=== PATIENT | male | born 1995 | race Caucasian/White ===

== ENCOUNTER 2020-06-03 18:07 | Inpatient (IN) ==
[2020-06-03] MEDS ORDERED: SODIUM CHLORIDE 0.9% 1000ML 1,000 ML IV SCH (18:15)
--- NOTE | 2020-06-03 18:20 | Emergency Department Note ---
Impression & Plan Altered mental status, Benzodiazepine overdose ED Provider Note NAME: SOBIA TRUONG AGE: 24 SEX: M : 1995 ARRIVES VIA: Ambulance INFORMANT: Patient, prehospital personnel ED PROVIDER(S): Yandel Payne DO CHIEF COMPLAINT: Altered mental status HPI: The patient is a 24-year-old male who presented to the emergency department by ambulance for an evaluation of altered mental status. The patient's significant other called 911 and the patient was evaluated at his home for altered mental status. The patient admitted to some marijuana use earlier in the day but states no recent drug or alcohol use. He states he has a history of serotonin syndrome but the symptoms were significantly different. He has no history of falls. There was no history of fever. He has no headache or neck stiffness. He denies having any nausea or vomiting. He states that he has had no recent traveling. According to the prehospital personnel the patient was confused to location but he was oriented to person place and situation otherw ise. The patient offers very little history. The patient is slow to answer questions. Vital signs were stable prior to arrival according to the prehospital personnel. Further history is obtained from the patient's girlfriend. Apparently they are both from the [facility]. The patient was picked up by his girlfriend to come to college this afternoon. She picked him up around 1 PM. She states that he was in his normal state of health but once they got to [place] at around 5:00 he started to have a decrease in his mental status and that when she became worried about his condition and called 911. ROS: See above HPI for pertinent positives & negatives. A total of 10 systems reviewed and were otherwise negative. PAST MEDICAL HISTORY: See Below PAST SURGICAL HISTORY: See Below FAMILY HISTORY: See Below SOCIAL HISTORY: See Below HOME MEDICATIONS: See Below ALLERGIES: See Below VITALS: See Below PHYSICAL EXAMINATION: GENERAL: The patient is listless and slow to respond to questioning. He does not appear to be anxious or uncomfortable. EYES: The conjunctivae are clear. The pupils are round and reactive. EARS, NOSE, MOUTH AND THROAT: The nose is without any evidence of any deformity. NECK: The neck is nontender and supple. RESPIRATORY: Normal respiratory effort is noted there is no evidence of wheezing rhonchi or rales CARDIOVASCULAR: Regular rate and rhythm noted there no murmurs rubs or gallops normal S1 normal S2. GASTROINTESTINAL: The abdomen is soft. Abdomen is nontender. MUSCULOSKELETAL/EXTREMITIES: There is no evidence of gross deformity full range of motion is noted in the hips and shoulders. SKIN: There is no obvious evidence of any rash. There are no petechiae, pallor or cyanosis noted. NEUROLOGIC: Patient is awake to verbal commands. He is oriented to person. He knows his name as well as the date. Initially he thought he was at a different emergency department but now knows he is at [facility]. Strength was symmetric. Patellar tendon reflexes were 1+ bilaterally. PSYCH: The patient makes poor eye contact. Currently he is denying any drug or alcohol abuse. He is denying any suicidal homicidal ideation. MEDICAL DECISION MAKING: The patient is a 24-year-old male who presented to the emergency department for altered mental status. There was no reported overdose and the patient denied any drug or alcohol use other than marijuana. The patient was evaluated multiple times. The patient's mental status continued to diminish while he was in the emergency department. He was awake and alert to verbal commands initially but is sleeping at this time. He does still arouse to loud verbal commands. The patient's mother came to the emergency department to be with him. She does help with some of the history and states that the patient has had problems with anxiety in the past and is self medicated with Xanax. I discussed the patient's laboratory and radiographic studies with him and his mother. Given his ongoing symptoms I will discuss his case with the on-call [facility] hospitalist group. The patient was treated with IV fluids in the emergency department. Vital signs were reassuring. Triage Nursing notes reviewed. Prior medical records reviewed Vital Signs: reviewed and remarkable for episodes of hypotension. Differential diagnosis: Infection, hypoglycemia, electrolyte abnormalities, overdose, toxicologic, cardiac sources, intracerebral event, neurologic, trauma, as well as other pathologies. ER treatment provided: See below Diagnostics interpreted by me: ECG: EKG was obtained in the emergency department. My interpretation is sinus tachycardia 105 bpm. There was no ectopy. There was no acute ST segment abnormalities noted. No previous tracing was available. Cardiac Monitoring: An order was placed for continuous cardiac monitoring. The monitor shows a rate of 85 bpm with sinus rhythm. Laboratory studies: As stated above and show below. Imaging studies: See below Consultation(s): 2030: I discussed this case with Dr. Alegria who is on-call for the [facility] hospitalist group. Past Med/Surg History Medical History Serotonin syndrome Social History Smoking Status: Current some day smoker Hx Substance Use: Yes Prescribed Medications: Marijuana Non-Prescribed Medications: Crack / Cocaine Preferred Language: Welsh Allergies Allergies Allergy/AdvReac Type Severity Reaction Status Date / Time No Known Allergies Allergy Unverified 06/03/20 19:12 Home Meds Home Medications Medication Instructions Recorded Confirmed levetiracetam [Keppra] 1,000 mg PO BID 06/03/20 06/03/20 Results & Data (ED) Vital Signs Vital Signs - 24 hr 06/03/20 18:21 06/03/20 18:24 06/03/20 18:30 Temperature 36.4 C L Temperature Source Oral Pulse Rate 89 81 Respiratory Rate 22 21 Blood Pressure 118/71 109/57 L Blood Pressure Mean 86 80 Pulse Oximetry 99 98 96 Oxygen Delivery Method Room Air Room Air Sepsis Recent Fever Within 48 Hours No Sepsis New/Unexplained Change in Mental Status Yes Sepsis Action Taken by Nursing No Action Required Home Medications Current Medication List: was personally reviewed by me Laboratory Data Attestation: I reviewed the patient's lab results. Result diagrams: 06/03/20 18:17 06/03/20 18:17 Lab Results 06/03/20 06/03/20 06/03/20 Range/Units 18:17 18:17 18:17 WBC 7.83 (4.8-10.8) K/uL RBC 5.12 (4.7-6.1) M/uL Hgb 14.6 (14.0-18.0) g/dL POC Hgb (14.0-18.0) g/dl Hct 41.1 L (42-52) % POC Hct (42-52) % MCV 80.3 (80-100) fL MCH 28.5 (25-34) pg MCHC 35.5 (32-36) g/dL RDW Std Deviation 36.8 (36.4-46.3) fL RDW Coeff of Ania 12.4 (11.5-14.5) % Plt Count 248 (130-400) K/uL MPV 10.2 (7.4-10.4) fL Immature Gran % (Auto) 0.1 % Neut % (Auto) 62.3 % Lymph % (Auto) 27.6 % Sibley % (Auto) 8.6 % Eos % (Auto) 1.1 % Baso % (Auto) 0.3 % Neut # (Auto) 4.88 (1.4-6.5) K/uL Lymph # (Auto) 2.16 (1.2-3.4) K/uL Sibley # (Auto) 0.67 H (0.11-0.59) K/uL Eos # (Auto) 0.09 (0-0.5) K/uL Baso # (Auto) 0.02 (0-0.2) K/uL Immature Gran # (Auto) 0.01 (0.00-0.02) K/uL ESR (0-14) mm/hr PT 11.4 (9.0-12.0) Seconds INR 1.1 (0.9-1.1) APTT 32.9 H (21.0-31.0) Seconds PTT Ratio 1.2 Carboxyhemoglobin % THgb POC Sodium (135-144) mmol/L Sodium 141 (136-145) mmol/L POC Potassium (3.3-5.0) mmol/L Potassium 3.6 (3.5-5.1) mmol/L POC Chloride (101-112) mmol/L Chloride 106 (98-107) mmol/L Carbon Dioxide 28 (21-32) mmol/L POC Total CO2 (24-31) mmol/L Anion Gap 7.0 (3-11) POC Anion Gap (16-25) mmol/L POC BUN (7-18) mg/dl BUN 12 (7-18) mg/dl Creatinine 0.99 (0.6-1.4) mg/dl POC Creatinine (0.6-1.3) mg/dl Est Cr Clr Drug Dosing Not Reportable Est GFR ( Amer) 124.8 Est GFR (Non-Af Amer) 107.7 BUN/Creatinine Ratio 11.9 (10-20) Glucose 78 (70-99) mg/dl POC Glucose (other) (70-99) mg/dl Osmolality (280-300) mOsm/kg Calcium 9.2 (8.5-10.1) mg/dl POC Ioniz Calcium Deyanira (1.12-1.32) mmol/l Magnesium 2.2 (1.8-2.4) mg/dl Total Bilirubin 0.4 (0.2-1) mg/dl AST 11 L (15-37) U/L ALT 32 (12-78) U/L Alkaline Phosphatase 112 (45-117) U/L Total Creatine Kinase 45 (39-308) U/L Troponin I < 0.015 (0-0.045) ng/ml C-Reactive Protein 0.83 H (0-0.29) mg/dl Total Protein 7.9 (6.4-8.2) gm/dl Albumin 4.2 (3.4-5.0) gm/dl Globulin 3.7 (2.5-4.0) gm/dl Albumin/Globulin Ratio 1.1 (0.9-2) Lipase 117 (73-393) U/L Urine Color Urine Appearance (Clear) Urine pH (4.5-7.5) Ur Specific [place] (1.000-1.030) Urine Protein (Negative) Urine Glucose (UA) (Negative) Urine Ketones (Negative) Urine Blood (Negative) Urine Nitrite (Negative) Urine Bilirubin (Negative) Urine Urobilinogen (Negative) Ur Leukocyte Esterase (Negative) Salicylates (2.8-20) mg/dl Urine Opiates Screen (Neg) Ur Methadone, Qual (Neg) Acetaminophen (10-30) ug/ml Urine Barbiturates (Neg) Ur Phencyclidine (PCP) (Neg) U Amphetamin/Meth Scrn (Neg) MDMA (Ecstasy) Screen (Neg) U Benzodiazepines Scrn (Neg) Ur Cocaine Metabolite (Neg) U Marijuana (THC) Screen (Neg) Ethyl Alcohol mg/dL (0-3) mg/dl COVID-19 Eval Order SARS-CoV-2, RNA, NAAT (NEGATIVE) 06/03/20 06/03/20 06/03/20 Range/Units 18:17 18:17 18:17 WBC (4.8-10.8) K/uL RBC (4.7-6.1) M/uL Hgb (14.0-18.0) g/dL POC Hgb (14.0-18.0) g/dl Hct (42-52) % POC Hct (42-52) % MCV (80-100) fL MCH (25-34) pg MCHC (32-36) g/dL RDW Std Deviation (36.4-46.3) fL RDW Coeff of Ania (11.5-14.5) % Plt Count (130-400) K/uL MPV (7.4-10.4) fL Immature Gran % (Auto) % Neut % (Auto) % Lymph % (Auto) % Sibley % (Auto) % Eos % (Auto) % Baso % (Auto) % Neut # (Auto) (1.4-6.5) K/uL Lymph # (Auto) (1.2-3.4) K/uL Sibley # (Auto) (0.11-0.59) K/uL Eos # (Auto) (0-0.5) K/uL Baso # (Auto) (0-0.2) K/uL Immature Gran # (Auto) (0.00-0.02) K/uL ESR (0-14) mm/hr PT (9.0-12.0) Seconds INR (0.9-1.1) APTT (21.0-31.0) Seconds PTT Ratio Carboxyhemoglobin % THgb POC Sodium (135-144) mmol/L Sodium (136-145) mmol/L POC Potassium (3.3-5.0) mmol/L Potassium (3.5-5.1) mmol/L POC Chloride (101-112) mmol/L Chloride (98-107) mmol/L Carbon Dioxide (21-32) mmol/L POC Total CO2 (24-31) mmol/L Anion Gap (3-11) POC Anion Gap (16-25) mmol/L POC BUN (7-18) mg/dl BUN (7-18) mg/dl Creatinine (0.6-1.4) mg/dl POC Creatinine (0.6-1.3) mg/dl Est Cr Clr Drug Dosing Est GFR ( Amer) Est GFR (Non-Af Amer) BUN/Creatinine Ratio (10-20) Glucose (70-99) mg/dl POC Glucose (other) (70-99) mg/dl Osmolality 289 (280-300) mOsm/kg Calcium (8.5-10.1) mg/dl POC Ioniz Calcium Deyanira (1.12-1.32) mmol/l Magnesium (1.8-2.4) mg/dl Total Bilirubin (0.2-1) mg/dl AST (15-37) U/L ALT (12-78) U/L Alkaline Phosphatase (45-117) U/L Total Creatine Kinase (39-308) U/L Troponin I (0-0.045) ng/ml C-Reactive Protein (0-0.29) mg/dl Total Protein (6.4-8.2) gm/dl Albumin (3.4-5.0) gm/dl Globulin (2.5-4.0) gm/dl Albumin/Globulin Ratio (0.9-2) Lipase (73-393) U/L Urine Color Urine Appearance (Clear) Urine pH (4.5-7.5) Ur Specific [place] (1.000-1.030) Urine Protein (Negative) Urine Glucose (UA) (Negative) Urine Ketones (Negative) Urine Blood (Negative) Urine Nitrite (Negative) Urine Bilirubin (Negative) Urine Urobilinogen (Negative) Ur Leukocyte Esterase (Negative) Salicylates < 1.7 L (2.8-20) mg/dl Urine Opiates Screen (Neg) Ur Methadone, Qual (Neg) Acetaminophen < 2 L (10-30) ug/ml Urine Barbiturates (Neg) Ur Phencyclidine (PCP) (Neg) U Amphetamin/Meth Scrn (Neg) MDMA (Ecstasy) Screen (Neg) U Benzodiazepines Scrn (Neg) Ur Cocaine Metabolite (Neg) U Marijuana (THC) Screen (Neg) Ethyl Alcohol mg/dL (0-3) mg/dl COVID-19 Eval Order Covid19 IDNow [facility] SARS-CoV-2, RNA, NAAT (NEGATIVE) 06/03/20 06/03/20 06/03/20 Range/Units 18:17 18:17 18:17 WBC (4.8-10.8) K/uL RBC (4.7-6.1) M/uL Hgb (14.0-18.0) g/dL POC Hgb (14.0-18.0) g/dl Hct (42-52) % POC Hct (42-52) % MCV (80-100) fL MCH (25-34) pg MCHC (32-36) g/dL RDW Std Deviation (36.4-46.3) fL RDW Coeff of Ania (11.5-14.5) % Plt Count (130-400) K/uL MPV (7.4-10.4) fL Immature Gran % (Auto) % Neut % (Auto) % Lymph % (Auto) % Sibley % (Auto) % Eos % (Auto) % Baso % (Auto) % Neut # (Auto) (1.4-6.5) K/uL Lymph # (Auto) (1.2-3.4) K/uL Sibley # (Auto) (0.11-0.59) K/uL Eos # (Auto) (0-0.5) K/uL Baso # (Auto) (0-0.2) K/uL Immature Gran # (Auto) (0.00-0.02) K/uL ESR 4 (0-14) mm/hr PT (9.0-12.0) Seconds INR (0.9-1.1) APTT (21.0-31.0) Seconds PTT Ratio Carboxyhemoglobin % THgb POC Sodium (135-144) mmol/L Sodium (136-145) mmol/L POC Potassium (3.3-5.0) mmol/L Potassium (3.5-5.1) mmol/L POC Chloride (101-112) mmol/L Chloride (98-107) mmol/L Carbon Dioxide (21-32) mmol/L POC Total CO2 (24-31) mmol/L Anion Gap (3-11) POC Anion Gap (16-25) mmol/L POC BUN (7-18) mg/dl BUN (7-18) mg/dl Creatinine (0.6-1.4) mg/dl POC Creatinine (0.6-1.3) mg/dl Est Cr Clr Drug Dosing Est GFR ( Amer) Est GFR (Non-Af Amer) BUN/Creatinine Ratio (10-20) Glucose (70-99) mg/dl POC Glucose (other) (70-99) mg/dl Osmolality (280-300) mOsm/kg Calcium (8.5-10.1) mg/dl POC Ioniz Calcium Deyanira (1.12-1.32) mmol/l Magnesium (1.8-2.4) mg/dl Total Bilirubin (0.2-1) mg/dl AST (15-37) U/L ALT (12-78) U/L Alkaline Phosphatase (45-117) U/L Total Creatine Kinase (39-308) U/L Troponin I (0-0.045) ng/ml C-Reactive Protein Cancelled (0-0.29) mg/dl Total Protein (6.4-8.2) gm/dl Albumin (3.4-5.0) gm/dl Globulin (2.5-4.0) gm/dl Albumin/Globulin Ratio (0.9-2) Lipase (73-393) U/L Urine Color Urine Appearance (Clear) Urine pH (4.5-7.5) Ur Specific [place] (1.000-1.030) Urine Protein (Negative) Urine Glucose (UA) (Negative) Urine Ketones (Negative) Urine Blood (Negative) Urine Nitrite (Negative) Urine Bilirubin (Negative) Urine Urobilinogen (Negative) Ur Leukocyte Esterase (Negative) Salicylates (2.8-20) mg/dl Urine Opiates Screen (Neg) Ur Methadone, Qual (Neg) Acetaminophen (10-30) ug/ml Urine Barbiturates (Neg) Ur Phencyclidine (PCP) (Neg) U Amphetamin/Meth Scrn (Neg) MDMA (Ecstasy) Screen (Neg) U Benzodiazepines Scrn (Neg) Ur Cocaine Metabolite (Neg) U Marijuana (THC) Screen (Neg) Ethyl Alcohol mg/dL (0-3) mg/dl COVID-19 Eval Order SARS-CoV-2, RNA, NAAT NEGATIVE (NEGATIVE) 06/03/20 06/03/20 06/03/20 Range/Units 18:23 18:28 18:28 WBC (4.8-10.8) K/uL RBC (4.7-6.1) M/uL Hgb (14.0-18.0) g/dL POC Hgb 14.3 (14.0-18.0) g/dl Hct (42-52) % POC Hct 42 (42-52) % MCV (80-100) fL MCH (25-34) pg MCHC (32-36) g/dL RDW Std Deviation (36.4-46.3) fL RDW Coeff of Ania (11.5-14.5) % Plt Count (130-400) K/uL MPV (7.4-10.4) fL Immature Gran % (Auto) % Neut % (Auto) % Lymph % (Auto) % Sibley % (Auto) % Eos % (Auto) % Baso % (Auto) % Neut # (Auto) (1.4-6.5) K/uL Lymph # (Auto) (1.2-3.4) K/uL Sibley # (Auto) (0.11-0.59) K/uL Eos # (Auto) (0-0.5) K/uL Baso # (Auto) (0-0.2) K/uL Immature Gran # (Auto) (0.00-0.02) K/uL ESR (0-14) mm/hr PT (9.0-12.0) Seconds INR (0.9-1.1) APTT (21.0-31.0) Seconds PTT Ratio Carboxyhemoglobin 0.0 % THgb POC Sodium 140 (135-144) mmol/L Sodium (136-145) mmol/L POC Potassium 3.7 (3.3-5.0) mmol/L Potassium (3.5-5.1) mmol/L POC Chloride 104 (101-112) mmol/L Chloride (98-107) mmol/L Carbon Dioxide (21-32) mmol/L POC Total CO2 27 (24-31) mmol/L Anion Gap (3-11) POC Anion Gap 14.0 L (16-25) mmol/L POC BUN 13 (7-18) mg/dl BUN (7-18) mg/dl Creatinine (0.6-1.4) mg/dl POC Creatinine 0.9 (0.6-1.3) mg/dl Est Cr Clr Drug Dosing Est GFR ( Amer) Est GFR (Non-Af Amer) BUN/Creatinine Ratio (10-20) Glucose (70-99) mg/dl POC Glucose (other) 81 (70-99) mg/dl Osmolality (280-300) mOsm/kg Calcium (8.5-10.1) mg/dl POC Ioniz Calcium Deyanira 1.15 (1.12-1.32) mmol/l Magnesium (1.8-2.4) mg/dl Total Bilirubin (0.2-1) mg/dl AST (15-37) U/L ALT (12-78) U/L Alkaline Phosphatase (45-117) U/L Total Creatine Kinase (39-308) U/L Troponin I (0-0.045) ng/ml C-Reactive Protein (0-0.29) mg/dl Total Protein (6.4-8.2) gm/dl Albumin (3.4-5.0) gm/dl Globulin (2.5-4.0) gm/dl Albumin/Globulin Ratio (0.9-2) Lipase (73-393) U/L Urine Color Urine Appearance (Clear) Urine pH (4.5-7.5) Ur Specific [place] (1.000-1.030) Urine Protein (Negative) Urine Glucose (UA) (Negative) Urine Ketones (Negative) Urine Blood (Negative) Urine Nitrite (Negative) Urine Bilirubin (Negative) Urine Urobilinogen (Negative) Ur Leukocyte Esterase (Negative) Salicylates (2.8-20) mg/dl Urine Opiates Screen (Neg) Ur Methadone, Qual (Neg) Acetaminophen (10-30) ug/ml Urine Barbiturates (Neg) Ur Phencyclidine (PCP) (Neg) U Amphetamin/Meth Scrn (Neg) MDMA (Ecstasy) Screen (Neg) U Benzodiazepines Scrn (Neg) Ur Cocaine Metabolite (Neg) U Marijuana (THC) Screen (Neg) Ethyl Alcohol mg/dL < 3.0 (0-3) mg/dl COVID-19 Eval Order SARS-CoV-2, RNA, NAAT (NEGATIVE) 06/03/20 06/03/20 Range/Units 19:20 19:20 WBC (4.8-10.8) K/uL RBC (4.7-6.1) M/uL Hgb (14.0-18.0) g/dL POC Hgb (14.0-18.0) g/dl Hct (42-52) % POC Hct (42-52) % MCV (80-100) fL MCH (25-34) pg MCHC (32-36) g/dL RDW Std Deviation (36.4-46.3) fL RDW Coeff of Ania (11.5-14.5) % Plt Count (130-400) K/uL MPV (7.4-10.4) fL Immature Gran % (Auto) % Neut % (Auto) % Lymph % (Auto) % [place] % (Auto) % Eos % (Auto) % Baso % (Auto) % Neut # (Auto) (1.4-6.5) K/uL Lymph # (Auto) (1.2-3.4) K/uL S[place]y # (Auto) (0.11-0.59) K/uL Eos # (Auto) (0-0.5) K/uL Baso # (Auto) (0-0.2) K/uL Immature Gran # (Auto) (0.00-0.02) K/uL ESR (0-14) mm/hr PT (9.0-12.0) Seconds INR (0.9-1.1) APTT (21.0-31.0) Seconds PTT Ratio Carboxyhemoglobin % THgb POC Sodium (135-144) mmol/L Sodium (136-145) mmol/L POC Potassium (3.3-5.0) mmol/L Potassium (3.5-5.1) mmol/L POC Chloride (101-112) mmol/L Chloride (98-107) mmol/L Carbon Dioxide (21-32) mmol/L POC Total CO2 (24-31) mmol/L Anion Gap (3-11) POC Anion Gap (16-25) mmol/L POC BUN (7-18) mg/dl BUN (7-18) mg/dl Creatinine (0.6-1.4) mg/dl POC Creatinine (0.6-1.3) mg/dl Est Cr Clr Drug Dosing Est GFR ( Amer) Est GFR (Non-Af Amer) BUN/Creatinine Ratio (10-20) Glucose (70-99) mg/dl POC Glucose (other) (70-99) mg/dl Osmolality (280-300) mOsm/kg Calcium (8.5-10.1) mg/dl POC Ioniz Calcium Deyanira (1.12-1.32) mmol/l Magnesium (1.8-2.4) mg/dl Total Bilirubin (0.2-1) mg/dl AST (15-37) U/L ALT (12-78) U/L Alkaline Phosphatase (45-117) U/L Total Creatine Kinase (39-308) U/L Troponin I (0-0.045) ng/ml C-Reactive Protein (0-0.29) mg/dl Total Protein (6.4-8.2) gm/dl Albumin (3.4-5.0) gm/dl Globulin (2.5-4.0) gm/dl Albumin/Globulin Ratio (0.9-2) Lipase (73-393) U/L Urine Color Yellow Urine Appearance Clear (Clear) Urine pH 7.0 (4.5-7.5) Ur Specific [place] 1.023 (1.000-1.030) Urine Protein Negative (Negative) Urine Glucose (UA) Negative (Negative) Urine Ketones Negative (Negative) Urine Blood Negative (Negative) Urine Nitrite Negative (Negative) Urine Bilirubin Negative (Negative) Urine Urobilinogen Negative (Negative) Ur Leukocyte Esterase Negative (Negative) Salicylates (2.8-20) mg/dl Urine Opiates Screen Neg (Neg) Ur Methadone, Qual Neg (Neg) Acetaminophen (10-30) ug/ml Urine Barbiturates Neg (Neg) Ur Phencyclidine (PCP) Neg (Neg) U Amphetamin/Meth Scrn Neg (Neg) MDMA (Ecstasy) Screen Neg (Neg) U Benzodiazepines Scrn Pos H (Neg) Ur Cocaine Metabolite Neg (Neg) U Marijuana (THC) Screen Pos H (Neg) Ethyl Alcohol mg/dL (0-3) mg/dl COVID-19 Eval Order SARS-CoV-2, RNA, NAAT (NEGATIVE) Administered Medications Discontinued Medications Sodium Chloride (Nss 1000ml) 1,000 mls @ 999 mls/hr IV .[id number] Stop: 06/03/20 19:15 Last Infusion: 06/03/20 20:01 Dose: 0 mls/hr Documented by: [id number] Admin: 06/03/20 18:51 Dose: 999 mls/hr Documented by: [id number] Imaging Data Radiologist's Impression: Patient: SOBIA TRUONG Admit Date: 06/03/20 MR#: [id number] Address1: [facility] [place] Acct ID:[id number] Address2: Date: 1995 [facility] Zip: [place] [address] Age: 24 Location: ED Sex: M Room/Bed: Att Phy: Diagnosis: WEAKNESS, SLURRED SPEECH Bety Phy: PCP,NO Service Date: 06/03/20 Tonio Phy: Interpreting Phy: Kristofer Bowles MD Admit Phy: Ordering Phy: Yandel Payne DO cc: ~ HEAD CT NONCONTRAST CT DOSE: 767.83 mGy.cm HISTORY: Altered mental status. TECHNIQUE: Multiaxial CT images of the head were performed without the use of intravenous contrast. Automated exposure control was utilized for this study. A dose lowering technique was utilized adhering to the principles of ALARA. Comparison: None. Findings: The paranasal sinuses and mastoid air cells are clear. The calvarium and skull base are intact. The ventricles and sulci are within normal limits. There is no mass, hematoma, midline shift, or acute infarct. Impression: No acute intracranial abnormality. ACT 112: Negative or not required by law. Electronically signed by: Kristofer Bowles M.D. 06/03/2020 6:49 PM Dictated: 06/03/201844 Transcribed: 06/03/201844 Patient: SOBIA TRUONG Admit Date: 06/03/20 MR#: [id number] Address1: [facility] [place] Acct ID:[id number] Address2: Date: 1995 [facility] Zip: [place] [address] Age: 24 Location: ED Sex: M Room/Bed: Att Phy: Diagnosis: WEAKNESS, SLURRED SPEECH Bety Phy: PCP,NO Service Date: 06/03/20 Tonio Phy: Interpreting Phy: Kristofer Bowles MD Admit Phy: Ordering Phy: Yandel Payne DO cc: ~ XR chest 1V portable HISTORY: Altered mental status. COMPARISON: None. FINDINGS: The lungs are clear. Cardiac silhouette is normal in size. No pleural effusions. No pneumothorax. IMPRESSION: No acute process. ACT 112: Negative or not required by law. Electronically signed by: Kristofer Bowles M.D. 06/03/2020 7:13 PM Dictated: 06/03/201910 Transcribed: 06/03/201910 Prescription Drug Monitoring [place] Drug Monitoring Program reviewed and no issues identified Discharge Plan Visit Data Chief Complaint: Altered Mental Status ED Provider: Yandel Payne Discharge Problem: Altered mental status, Benzodiazepine overdose Patient Disposition: Being Evaluated by Hospitalist Condition: Good Forms Stand Alone Forms: [facility] Prescriptions Prescriptions: No Action levetiracetam [Keppra] 1,000 mg Tablet 1,000 mg PO BID RF: 0 Referrals Referrals: JABARI GURROLA [Other] Discharge Problem: Altered mental status Qualifiers: Altered mental status type: unspecified Qualified Code(s): R41.82 - Altered mental status, unspecified Benzodiazepine overdose Qualifiers: Encounter type: initial encounter Injury intent: undetermined intent Qualified Code(s): T42.4X4A - Poisoning by benzodiazepines, undetermined, initial encounter
[2020-06-03 18:31] LABS: Basophils # (auto) 0.02 K/uL (0-0.2); Basophils % (auto) 0.3 %; Eosinophils # (auto) 0.09 K/uL (0-0.5); Eosinophils % (auto) 1.1 %; Hematocrit (blood only) 41.1 % (42-52); Hemoglobin 14.6 g/dL (14.0-18.0); Immature Granulocytes # (auto) 0.01 K/uL (0.00-0.02); Immature Granulocytes % (auto) 0.1 %; Lymphocytes # (auto) 2.16 K/uL (1.2-3.4); Lymphocytes % (auto) 27.6 %; Mean Corpuscular Hemoglobin 28.5 pg (25-34); Mean Corpuscular Hgb Conc 35.5 g/dL (32-36); Mean Corpuscular Volume 80.3 fL (80-100); Mean Platelet Volume 10.2 fL (7.4-10.4); Monocytes # (auto) 0.67 K/uL (0.11-0.59); Monocytes % (auto) 8.6 %; Neutrophils # (auto) 4.88 K/uL (1.4-6.5); Neutrophils % (auto) 62.3 %; Platelet Count 248 K/uL (130-400); RDW Coefficient of Variation 12.4 % (11.5-14.5); RDW Standard Deviation 36.8 fL (36.4-46.3); Red Blood Count 5.12 M/uL (4.7-6.1); White Blood Count 7.83 K/uL (4.8-10.8)
[2020-06-03 18:34] LABS: iSTAT Creatinine 0.9 mg/dl (0.6-1.3); iSTAT Hemoglobin 14.3 g/dl (14.0-18.0); iSTAT Ionized Calcium 1.15 mmol/l (1.12-1.32); iSTAT Potassium 3.7 mmol/L (3.3-5.0)
[2020-06-03 18:42] LABS: INR 1.1 (0.9-1.1); Partial Thromboplastin Ratio 1.2; Partial Thromboplastin Time 32.9 Seconds (21.0-31.0); Prothrombin Time 11.4 Seconds (9.0-12.0)
[2020-06-03 18:46] LABS: Alanine Aminotransferase 32 U/L (12-78); Albumin Level 4.2 gm/dl (3.4-5.0); Aspartate Aminotransferase 11 U/L (15-37); BUN Creatinine Ratio 11.9 (10-20); Blood Urea Nitrogen 12 mg/dl (7-18); Calcium 9.2 mg/dl (8.5-10.1); Carbon Dioxide 28 mmol/L (21-32); Chloride 106 mmol/L (98-107); Est GFR (African American) 124.8; Est GFR (Non-African American) 107.7; Glucose 78 mg/dl (70-99); Lipase 117 U/L (73-393); Magnesium 2.2 mg/dl (1.8-2.4); Potassium 3.6 mmol/L (3.5-5.1); Sodium 141 mmol/L (136-145)
[2020-06-03 18:51] LABS: Albumin Globulin Ratio 1.1 (0.9-2); Alkaline Phosphatase 112 U/L (45-117); Bilirubin,Total 0.4 mg/dl (0.2-1); Creatine Kinase 45 U/L (39-308); Globulin 3.7 gm/dl (2.5-4.0); Total Protein 7.9 gm/dl (6.4-8.2); Troponin I < 0.015 ng/ml (0-0.045)
--- NOTE | 2020-06-03 18:51 | CT Scan Report ---
HEAD CT NONCONTRAST CT DOSE: 767.83 mGy.cm HISTORY: Altered mental status. TECHNIQUE: Multiaxial CT images of the head were performed without the use of intravenous contrast. A utomated exposure control was utilized for this study. A dose lowering technique was utilized adheri ng to the principles of ALARA. Comparison: None. Findings: The paranasal sinuses and mastoid air cells are clear. The calvarium and skull base are int act. The ventricles and sulci are within normal limits. There is no mass, hematoma, midline shift, or acute infarct. Impression: No acute intracranial abnormality. ACT 112: Negative or not required by law. Electronically signed by: Kristofer Bowles M.D. 06/03/2020 6:49 PM
[2020-06-03 18:53] LABS: Acetaminophen < 2 ug/ml (10-30); Salicylate < 1.7 mg/dl (2.8-20)
[2020-06-03 19:01] LABS: C Reactive Protein 0.83 mg/dl (0-0.29)
--- NOTE | 2020-06-03 19:15 | XRay Report ---
XR chest 1V portable HISTORY: Altered mental status. COMPARISON: None. FINDINGS: The lungs are clear. Cardiac silhouette is normal in size. No pleural effusions. No pneumot horax. IMPRESSION: No acute process. ACT 112: Negative or not required by law. Electronically signed by: Kristofer Bowles M.D. 06/03/2020 7:13 PM
[2020-06-03 19:33] LABS: Appearance Urine Clear (Clear); Bilirubin Urine Negative (Negative); Blood Urine Negative (Negative); Color Urine Yellow; Glucose Urine UA Negative (Negative); Ketones Urine Negative (Negative); Leukocyte Esterase Urine Negative (Negative); Nitrite Urine Negative (Negative); Protein Urine Negative (Negative); Specific Gravity Urine 1.023 (1.000-1.030); Urobilinogen Urine Negative (Negative)
[2020-06-03 20:06] LABS: Amphetamines+Metham, Urine Neg (Neg); Barbiturates, Urine Neg (Neg); Benzodiazepine, Urine Pos (Neg); Cocaine, Urine Neg (Neg); MDMA (Ecstacy), Urine Neg (Neg); Methadone, Urine Neg (Neg); Opiate, Urine Neg (Neg); Phencyclidine, Urine Neg (Neg)
[2020-06-03] MEDS ORDERED: SODIUM CHLORIDE 0.9% 1000ML 1,000 ML IV ONE (20:21)
[2020-06-03] MEDS ORDERED: levETIRAcetam 1,000 MG in 0.9 % SODIUM CHLORIDE 100 ML IV STA (20:51)
--- NOTE | 2020-06-03 21:24 | History & Physical Report ---
Date of Service June 03, 2020 Assessment & Plan (1) Altered mental status: Seymour is a 24yo C male with history of prior serotonin syndrome (details below) in March 2020 presenting with AMS. Patient is somnolent, arousable to noxious stimuli. He answers questions, grossly nonfocal neurological exam. Workup thus far includes normal chemistry panel and CBC with no leukocytosis, intact renal function, normal LFTs, no serum osmolar gap. Troponin and EKG are unremarkable - narrow complex, normal intervals. UA unremarkable. EtOH negative. Utox positive for THC which he admitted to as well as Benzodiazepines which he does not admit to taking. Specific details of benzos is pending. CT of the head is unremarkable. Suspect benzodiazepine overdose. 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 from 04/15/20 - 04/20/20. Presumed serotonin syndrome. He was treated with Keppra and cyproheptadine -Uncertain what medications led to serotonin syndrome at that time - he was reportedly only on Xanax and a supplement, possibly [place] wort at the time of the incident. While [place]'s wort can cause serotonin syndrome it is usually in conjunction with other serotonergic agents, none of which he was on at the time. -Will request records from [facility] Present on Admission?: Yes (2) Seizure: Patient with history of seizure x 3 during thought to be secondary to ?serotonin syndrome?. He was started on Keppra x 6 months -Check Keppra level. Do not suspect intoxication or overdose at this time -Seizure precautions -Keppra 1000mg IV BID. Will transition to PO as mental status improves F/E/N - LR at 125mL/hr x 2 liters, electrolytes WNL, NPO for now - will advance diet as tolerated Ppx - Low risk for DVT Code- Full Dispo -Admit to PCU Present on Admission?: Yes History of Present Illness Chief Complaint: altered mental status Primary Care Provider: JABARI GURROLA Seymour Bauer is a 24 yo male presenting with altered mental status. Patient is unable to provide details of events prior to arrival. Patient's girlfriend was with him today and provides details and mother is at bedside. History collected from her as well as ER attending and chart review. Patient is from [place]. He was with his girlfriend today driving back to [employer] [place]. She picked him up around 13:00. She reports that around 17:00 he became lethargic and somnolent with labored breathing. 911 was called and patient was brought to the ER. Patient smoked some marijuana earlier today but denies additional substance use. He denies pain, VARGAS, fever, neck stiffness. No fall or head trauma. No additional complaints at this time. Upon arrival to the ER patient afebrile, HD stable, arousable to sternal rub, protecting airway ER Coruse: Keppra 90133 mg IV Allergies Allergy/AdvReac Type Severity Reaction Status Date / Time No Known Allergies Allergy Unverified 06/03/20 19:12 Home Medications Medication Instructions Recorded Confirmed Type levetiracetam [Keppra] 1,000 mg PO BID 06/03/20 06/03/20 History Past Med/Surg History Medical History (Updated 06/03/20 @ 21:23 by Edith Alegria DO) Seizure In setting of presumed serotonin syndrome Serotonin syndrome March 2020 - seen at [facility] Surgical History (Updated 06/03/20 @ 21:22 by Edith Alegria DO) History of wisdom tooth extraction Family History (Updated 06/03/20 @ 21:23 by Edith Alegria DO) Other Depression Social History (Updated 06/03/20 @ 21:24 by Edith Alegria DO) Smoking Status: Current some day smoker Hx Alcohol Use: Yes Hx Substance Use: Yes Prescribed Medications: Marijuana Preferred Language: Japanese Communication Ability: Effective Beauty Director Required: No Beliefs That Will Affect Care: None Current Living Situation: Parent and Family Current Living Situation Comment: Lives with mom, dad, and sister Other Information That Helps Us Care for You: No Feels Safe at Home: Yes Safety Concerns: Feels Safe At This Time Assistive Devices: Contacts and Glasses Review of Systems Review of Systems: Unobtainable due to reduced consciousness Physical Exam Physical Exam: General: patient somnolent, arousable to sternal rub, answers questions slowly with slurred speech, oriented x 3 Skin: warm, dry, intact, no rashes or lesions, no lacerations/bruising HEENT: NC/AT, facial bones stable, PERRL, anicteric sclera, conjunctiva without injection, external ear normal to inspection and nontender, right TM pearly, left ear with cerumen, nares patent, moist mucus membranes, dentition intact, no oropharyngeal lesions, neck supple, trachea midline, no LAD, no thyromegaly, no JVD Heart: +S1/S2, regular, no m/r/g Lungs: equal air entry bilaterally, no rales/rhonchi/wheezes Abd: +BS, soft, NT/ND, no masses/organomegaly/ascites Ext: warm, 2+ pulses in UE/LE bilaterally, no clubbing/cyanosis or edema Neuro: patient somnolent, arousable, answers questions slowly with slurred speech, oriented x 3, moving all extremities with equal strength 5/5 Results & Data Results & Data ([facility]) Vital Signs (Past 12 Hours) Vital Signs Temp Pulse Resp BP Pulse Ox 06/03/20 20:30 88 8 L 88/53 L 94 06/03/20 20:00 86 23 90/59 L 96 06/03/20 19:32 85 25 H 127/80 99 06/03/20 19:00 97 H 17 91/67 L 80 L 06/03/20 18:30 81 21 109/57 L 96 06/03/20 18:24 36.4 C L 89 22 118/71 98 06/03/20 18:21 99 Laboratory Results Lab Results 06/03/20 06/03/20 06/03/20 Range/Units 18:17 18:17 18:17 WBC 7.83 (4.8-10.8) K/uL RBC 5.12 (4.7-6.1) M/uL Hgb 14.6 (14.0-18.0) g/dL POC Hgb (14.0-18.0) g/dl Hct 41.1 L (42-52) % POC Hct (42-52) % MCV 80.3 (80-100) fL MCH 28.5 (25-34) pg MCHC 35.5 (32-36) g/dL RDW Std Deviation 36.8 (36.4-46.3) fL RDW Coeff of Ania 12.4 (11.5-14.5) % Plt Count 248 (130-400) K/uL MPV 10.2 (7.4-10.4) fL Immature Gran % (Auto) 0.1 % Neut % (Auto) 62.3 % Lymph % (Auto) 27.6 % Coos % (Auto) 8.6 % Eos % (Auto) 1.1 % Baso % (Auto) 0.3 % Neut # (Auto) 4.88 (1.4-6.5) K/uL Lymph # (Auto) 2.16 (1.2-3.4) K/uL Coos # (Auto) 0.67 H (0.11-0.59) K/uL Eos # (Auto) 0.09 (0-0.5) K/uL Baso # (Auto) 0.02 (0-0.2) K/uL Immature Gran # (Auto) 0.01 (0.00-0.02) K/uL ESR (0-14) mm/hr PT 11.4 (9.0-12.0) Seconds INR 1.1 (0.9-1.1) APTT 32.9 H (21.0-31.0) Seconds PTT Ratio 1.2 Carboxyhemoglobin % THgb POC Sodium (135-144) mmol/L Sodium 141 (136-145) mmol/L POC Potassium (3.3-5.0) mmol/L Potassium 3.6 (3.5-5.1) mmol/L POC Chloride (101-112) mmol/L Chloride 106 (98-107) mmol/L Carbon Dioxide 28 (21-32) mmol/L POC Total CO2 (24-31) mmol/L Anion Gap 7.0 (3-11) POC Anion Gap (16-25) mmol/L POC BUN (7-18) mg/dl BUN 12 (7-18) mg/dl Creatinine 0.99 (0.6-1.4) mg/dl POC Creatinine (0.6-1.3) mg/dl Est Cr Clr Drug Dosing Not Reportable Est GFR ( Amer) 124.8 Est GFR (Non-Af Amer) 107.7 BUN/Creatinine Ratio 11.9 (10-20) Glucose 78 (70-99) mg/dl POC Glucose (other) (70-99) mg/dl Osmolality (280-300) mOsm/kg Calcium 9.2 (8.5-10.1) mg/dl POC Ioniz Calcium Deyanira (1.12-1.32) mmol/l Magnesium 2.2 (1.8-2.4) mg/dl Total Bilirubin 0.4 (0.2-1) mg/dl AST 11 L (15-37) U/L ALT 32 (12-78) U/L Alkaline Phosphatase 112 (45-117) U/L Total Creatine Kinase 45 (39-308) U/L Troponin I < 0.015 (0-0.045) ng/ml C-Reactive Protein 0.83 H (0-0.29) mg/dl Total Protein 7.9 (6.4-8.2) gm/dl Albumin 4.2 (3.4-5.0) gm/dl Globulin 3.7 (2.5-4.0) gm/dl Albumin/Globulin Ratio 1.1 (0.9-2) Lipase 117 (73-393) U/L Urine Color Urine Appearance (Clear) Urine pH (4.5-7.5) Ur Specific [place] (1.000-1.030) Urine Protein (Negative) Urine Glucose (UA) (Negative) Urine Ketones (Negative) Urine Blood (Negative) Urine Nitrite (Negative) Urine Bilirubin (Negative) Urine Urobilinogen (Negative) Ur Leukocyte Esterase (Negative) Salicylates (2.8-20) mg/dl Urine Opiates Screen (Neg) Ur Methadone, Qual (Neg) Acetaminophen (10-30) ug/ml Urine Barbiturates (Neg) Ur Phencyclidine (PCP) (Neg) U Amphetamin/Meth Scrn (Neg) MDMA (Ecstasy) Screen (Neg) U Benzodiazepines Scrn (Neg) Ur Cocaine Metabolite (Neg) U Marijuana (THC) Screen (Neg) Ethyl Alcohol mg/dL (0-3) mg/dl COVID-19 Eval Order SARS-CoV-2, RNA, NAAT (NEGATIVE) 01/17/21 01/17/21 01/17/21 Range/Units 18:17 18:17 18:17 WBC (4.8-10.8) K/uL RBC (4.7-6.1) M/uL Hgb (14.0-18.0) g/dL POC Hgb (14.0-18.0) g/dl Hct (42-52) % POC Hct (42-52) % MCV (80-100) fL MCH (25-34) pg MCHC (32-36) g/dL RDW Std Deviation (36.4-46.3) fL RDW Coeff of Ania (11.5-14.5) % Plt Count (130-400) K/uL MPV (7.4-10.4) fL Immature Gran % (Auto) % Neut % (Auto) % Lymph % (Auto) % Coos % (Auto) % Eos % (Auto) % Baso % (Auto) % Neut # (Auto) (1.4-6.5) K/uL Lymph # (Auto) (1.2-3.4) K/uL Coos # (Auto) (0.11-0.59) K/uL Eos # (Auto) (0-0.5) K/uL Baso # (Auto) (0-0.2) K/uL Immature Gran # (Auto) (0.00-0.02) K/uL ESR (0-14) mm/hr PT (9.0-12.0) Seconds INR (0.9-1.1) APTT (21.0-31.0) Seconds PTT Ratio Carboxyhemoglobin % THgb POC Sodium (135-144) mmol/L Sodium (136-145) mmol/L POC Potassium (3.3-5.0) mmol/L Potassium (3.5-5.1) mmol/L POC Chloride (101-112) mmol/L Chloride (98-107) mmol/L Carbon Dioxide (21-32) mmol/L POC Total CO2 (24-31) mmol/L Anion Gap (3-11) POC Anion Gap (16-25) mmol/L POC BUN (7-18) mg/dl BUN (7-18) mg/dl Creatinine (0.6-1.4) mg/dl POC Creatinine (0.6-1.3) mg/dl Est Cr Clr Drug Dosing Est GFR ( Amer) Est GFR (Non-Af Amer) BUN/Creatinine Ratio (10-20) Glucose (70-99) mg/dl POC Glucose (other) (70-99) mg/dl Osmolality 289 (280-300) mOsm/kg Calcium (8.5-10.1) mg/dl POC Ioniz Calcium Deyanira (1.12-1.32) mmol/l Magnesium (1.8-2.4) mg/dl Total Bilirubin (0.2-1) mg/dl AST (15-37) U/L ALT (12-78) U/L Alkaline Phosphatase (45-117) U/L Total Creatine Kinase (39-308) U/L Troponin I (0-0.045) ng/ml C-Reactive Protein (0-0.29) mg/dl Total Protein (6.4-8.2) gm/dl Albumin (3.4-5.0) gm/dl Globulin (2.5-4.0) gm/dl Albumin/Globulin Ratio (0.9-2) Lipase (73-393) U/L Urine Color Urine Appearance (Clear) Urine pH (4.5-7.5) Ur Specific [place]ell (1.000-1.030) Urine Protein (Negative) Urine Glucose (UA) (Negative) Urine Ketones (Negative) Urine Blood (Negative) Urine Nitrite (Negative) Urine Bilirubin (Negative) Urine Urobilinogen (Negative) Ur Leukocyte Esterase (Negative) Salicylates < 1.7 L (2.8-20) mg/dl Urine Opiates Screen (Neg) Ur Methadone, Qual (Neg) Acetaminophen < 2 L (10-30) ug/ml Urine Barbiturates (Neg) Ur Phencyclidine (PCP) (Neg) U Amphetamin/Meth Scrn (Neg) MDMA (Ecstasy) Screen (Neg) U Benzodiazepines Scrn (Neg) Ur Cocaine Metabolite (Neg) U Marijuana (THC) Screen (Neg) Ethyl Alcohol mg/dL (0-3) mg/dl COVID-19 Eval [facility] SARS-CoV-2, RNA, NAAT (NEGATIVE) 06/03/20 06/03/20 06/03/20 Range/Units 18:17 18:17 18:17 WBC (4.8-10.8) K/uL RBC (4.7-6.1) M/uL Hgb (14.0-18.0) g/dL POC Hgb (14.0-18.0) g/dl Hct (42-52) % POC Hct (42-52) % MCV (80-100) fL MCH (25-34) pg MCHC (32-36) g/dL RDW Std Deviation (36.4-46.3) fL RDW Coeff of Ania (11.5-14.5) % Plt Count (130-400) K/uL MPV (7.4-10.4) fL Immature Gran % (Auto) % Neut % (Auto) % Lymph % (Auto) % Coos % (Auto) % Eos % (Auto) % Baso % (Auto) % Neut # (Auto) (1.4-6.5) K/uL Lymph # (Auto) (1.2-3.4) K/uL Coos # (Auto) (0.11-0.59) K/uL Eos # (Auto) (0-0.5) K/uL Baso # (Auto) (0-0.2) K/uL Immature Gran # (Auto) (0.00-0.02) K/uL ESR 4 (0-14) mm/hr PT (9.0-12.0) Seconds INR (0.9-1.1) APTT (21.0-31.0) Seconds PTT Ratio Carboxyhemoglobin % THgb POC Sodium (135-144) mmol/L Sodium (136-145) mmol/L POC Potassium (3.3-5.0) mmol/L Potassium (3.5-5.1) mmol/L POC Chloride (101-112) mmol/L Chloride (98-107) mmol/L Carbon Dioxide (21-32) mmol/L POC Total CO2 (24-31) mmol/L Anion Gap (3-11) POC Anion Gap (16-25) mmol/L POC BUN (7-18) mg/dl BUN (7-18) mg/dl Creatinine (0.6-1.4) mg/dl POC Creatinine (0.6-1.3) mg/dl Est Cr Clr Drug Dosing Est GFR ( Amer) Est GFR (Non-Af Amer) BUN/Creatinine Ratio (10-20) Glucose (70-99) mg/dl POC Glucose (other) (70-99) mg/dl Osmolality (280-300) mOsm/kg Calcium (8.5-10.1) mg/dl POC Ioniz Calcium Deyanira (1.12-1.32) mmol/l Magnesium (1.8-2.4) mg/dl Total Bilirubin (0.2-1) mg/dl AST (15-37) U/L ALT (12-78) U/L Alkaline Phosphatase (45-117) U/L Total Creatine Kinase (39-308) U/L Troponin I (0-0.045) ng/ml C-Reactive Protein Cancelled (0-0.29) mg/dl Total Protein (6.4-8.2) gm/dl Albumin (3.4-5.0) gm/dl Globulin (2.5-4.0) gm/dl Albumin/Globulin Ratio (0.9-2) Lipase (73-393) U/L Urine Color Urine Appearance (Clear) Urine pH (4.5-7.5) Ur Specific Lowell (1.000-1.030) Urine Protein (Negative) Urine Glucose (UA) (Negative) Urine Ketones (Negative) Urine Blood (Negative) Urine Nitrite (Negative) Urine Bilirubin (Negative) Urine Urobilinogen (Negative) Ur Leukocyte Esterase (Negative) Salicylates (2.8-20) mg/dl Urine Opiates Screen (Neg) Ur Methadone, Qual (Neg) Acetaminophen (10-30) ug/ml Urine Barbiturates (Neg) Ur Phencyclidine (PCP) (Neg) U Amphetamin/Meth Scrn (Neg) MDMA (Ecstasy) Screen (Neg) U Benzodiazepines Scrn (Neg) Ur Cocaine Metabolite (Neg) U Marijuana (THC) Screen (Neg) Ethyl Alcohol mg/dL (0-3) mg/dl COVID-19 Eval Order SARS-CoV-2, RNA, NAAT NEGATIVE (NEGATIVE) 06/03/20 06/03/20 06/03/20 Range/Units 18:23 18:28 18:28 WBC (4.8-10.8) K/uL RBC (4.7-6.1) M/uL Hgb (14.0-18.0) g/dL POC Hgb 14.3 (14.0-18.0) g/dl Hct (42-52) % POC Hct 42 (42-52) % MCV (80-100) fL MCH (25-34) pg MCHC (32-36) g/dL RDW Std Deviation (36.4-46.3) fL RDW Coeff of Ania (11.5-14.5) % Plt Count (130-400) K/uL MPV (7.4-10.4) fL Immature Gran % (Auto) % Neut % (Auto) % Lymph % (Auto) % Coos % (Auto) % Eos % (Auto) % Baso % (Auto) % Neut # (Auto) (1.4-6.5) K/uL Lymph # (Auto) (1.2-3.4) K/uL Coos # (Auto) (0.11-0.59) K/uL Eos # (Auto) (0-0.5) K/uL Baso # (Auto) (0-0.2) K/uL Immature Gran # (Auto) (0.00-0.02) K/uL ESR (0-14) mm/hr PT (9.0-12.0) Seconds INR (0.9-1.1) APTT (21.0-31.0) Seconds PTT Ratio Carboxyhemoglobin 0.0 % THgb POC Sodium 140 (135-144) mmol/L Sodium (136-145) mmol/L POC Potassium 3.7 (3.3-5.0) mmol/L Potassium (3.5-5.1) mmol/L POC Chloride 104 (101-112) mmol/L Chloride (98-107) mmol/L Carbon Dioxide (21-32) mmol/L POC Total CO2 27 (24-31) mmol/L Anion Gap (3-11) POC Anion Gap 14.0 L (16-25) mmol/L POC BUN 13 (7-18) mg/dl BUN (7-18) mg/dl Creatinine (0.6-1.4) mg/dl POC Creatinine 0.9 (0.6-1.3) mg/dl Est Cr Clr Drug Dosing Est GFR ( Amer) Est GFR (Non-Af Amer) BUN/Creatinine Ratio (10-20) Glucose (70-99) mg/dl POC Glucose (other) 81 (70-99) mg/dl Osmolality (280-300) mOsm/kg Calcium (8.5-10.1) mg/dl POC Ioniz Calcium Deyanira 1.15 (1.12-1.32) mmol/l Magnesium (1.8-2.4) mg/dl Total Bilirubin (0.2-1) mg/dl AST (15-37) U/L ALT (12-78) U/L Alkaline Phosphatase (45-117) U/L Total Creatine Kinase (39-308) U/L Troponin I (0-0.045) ng/ml C-Reactive Protein (0-0.29) mg/dl Total Protein (6.4-8.2) gm/dl Albumin (3.4-5.0) gm/dl Globulin (2.5-4.0) gm/dl Albumin/Globulin Ratio (0.9-2) Lipase (73-393) U/L Urine Color Urine Appearance (Clear) Urine pH (4.5-7.5) Ur Specific Lowell (1.000-1.030) Urine Protein (Negative) Urine Glucose (UA) (Negative) Urine Ketones (Negative) Urine Blood (Negative) Urine Nitrite (Negative) Urine Bilirubin (Negative) Urine Urobilinogen (Negative) Ur Leukocyte Esterase (Negative) Salicylates (2.8-20) mg/dl Urine Opiates Screen (Neg) Ur Methadone, Qual (Neg) Acetaminophen (10-30) ug/ml Urine Barbiturates (Neg) Ur Phencyclidine (PCP) (Neg) U Amphetamin/Meth Scrn (Neg) MDMA (Ecstasy) Screen (Neg) U Benzodiazepines Scrn (Neg) Ur Cocaine Metabolite (Neg) U Marijuana (THC) Screen (Neg) Ethyl Alcohol mg/dL < 3.0 (0-3) mg/dl COVID-19 Eval Order SARS-CoV-2, RNA, NAAT (NEGATIVE) 06/03/20 06/03/20 Range/Units 19:20 19:20 WBC (4.8-10.8) K/uL RBC (4.7-6.1) M/uL Hgb (14.0-18.0) g/dL POC Hgb (14.0-18.0) g/dl Hct (42-52) % POC Hct (42-52) % MCV (80-100) fL MCH (25-34) pg MCHC (32-36) g/dL RDW Std Deviation (36.4-46.3) fL RDW Coeff of Ania (11.5-14.5) % Plt Count (130-400) K/uL MPV (7.4-10.4) fL Immature Gran % (Auto) % Neut % (Auto) % Lymph % (Auto) % Coos % (Auto) % Eos % (Auto) % Baso % (Auto) % Neut # (Auto) (1.4-6.5) K/uL Lymph # (Auto) (1.2-3.4) K/uL Coos # (Auto) (0.11-0.59) K/uL Eos # (Auto) (0-0.5) K/uL Baso # (Auto) (0-0.2) K/uL Immature Gran # (Auto) (0.00-0.02) K/uL ESR (0-14) mm/hr PT (9.0-12.0) Seconds INR (0.9-1.1) APTT (21.0-31.0) Seconds PTT Ratio Carboxyhemoglobin % THgb POC Sodium (135-144) mmol/L Sodium (136-145) mmol/L POC Potassium (3.3-5.0) mmol/L Potassium (3.5-5.1) mmol/L POC Chloride (101-112) mmol/L Chloride (98-107) mmol/L Carbon Dioxide (21-32) mmol/L POC Total CO2 (24-31) mmol/L Anion Gap (3-11) POC Anion Gap (16-25) mmol/L POC BUN (7-18) mg/dl BUN (7-18) mg/dl Creatinine (0.6-1.4) mg/dl POC Creatinine (0.6-1.3) mg/dl Est Cr Clr Drug Dosing Est GFR ( Amer) Est GFR (Non-Af Amer) BUN/Creatinine Ratio (10-20) Glucose (70-99) mg/dl POC Glucose (other) (70-99) mg/dl Osmolality (280-300) mOsm/kg Calcium (8.5-10.1) mg/dl POC Ioniz Calcium Deyanira (1.12-1.32) mmol/l Magnesium (1.8-2.4) mg/dl Total Bilirubin (0.2-1) mg/dl AST (15-37) U/L ALT (12-78) U/L Alkaline Phosphatase (45-117) U/L Total Creatine Kinase (39-308) U/L Troponin I (0-0.045) ng/ml C-Reactive Protein (0-0.29) mg/dl Total Protein (6.4-8.2) gm/dl Albumin (3.4-5.0) gm/dl Globulin (2.5-4.0) gm/dl Albumin/Globulin Ratio (0.9-2) Lipase (73-393) U/L Urine Color Yellow Urine Appearance Clear (Clear) Urine pH 7.0 (4.5-7.5) Ur Specific [place]ell 1.023 (1.000-1.030) Urine Protein Negative (Negative) Urine Glucose (UA) Negative (Negative) Urine Ketones Negative (Negative) Urine Blood Negative (Negative) Urine Nitrite Negative (Negative) Urine Bilirubin Negative (Negative) Urine Urobilinogen Negative (Negative) Ur Leukocyte Esterase Negative (Negative) Salicylates (2.8-20) mg/dl Urine Opiates Screen Neg (Neg) Ur Methadone, Qual Neg (Neg) Acetaminophen (10-30) ug/ml Urine Barbiturates Neg (Neg) Ur Phencyclidine (PCP) Neg (Neg) U Amphetamin/Meth Scrn Neg (Neg) MDMA (Ecstasy) Screen Neg (Neg) U Benzodiazepines Scrn Pos H (Neg) Ur Cocaine Metabolite Neg (Neg) U Marijuana (THC) Screen Pos H (Neg) Ethyl Alcohol mg/dL (0-3) mg/dl COVID-19 Eval Order SARS-CoV-2, RNA, NAAT (NEGATIVE) Diagnostic Findings HEAD CT NONCONTRAST CT DOSE: 767.83 mGy.cm HISTORY: Altered mental status. TECHNIQUE: Multiaxial CT images of the head were performed without the use of intravenous contrast. Automated exposure control was utilized for this study. A dose lowering technique was utilized adhering to the principles of ALARA. Comparison: None. Findings: The paranasal sinuses and mastoid air cells are clear. The calvarium and skull base are intact. The ventricles and sulci are within normal limits. There is no mass, hematoma, midline shift, or acute infarct. Impression: No acute intracranial abnormality. ACT 112: Negative or not required by law. Electronically signed by: Kristofer Bowles M.D. 06/03/2020 6:49 PM Dictated: 06/03/[id number]: 06/03/201844 XR chest 1V portable HISTORY: Altered mental status. COMPARISON: None. FINDINGS: The lungs are clear. Cardiac silhouette is normal in size. No pleural effusions. No pneumothorax. IMPRESSION: No acute process. ACT 112: Negative or not required by law. Electronically signed by: Kristofer Bowles M.D. 06/03/2020 7:13 PM Dictated: 06/03/[id number]: 06/03/201910 ECG Additional Comments: ST at 105bpm, no acute ischemic changes PG Care Time/CCT Total # of Minutes Spent Total Time Spent with Patient: Total time spent is greater than 50% in coordination of care (as documented) at patient's floor/unit and/or counseling patient: Coding Level of Care Code 06811 Initial Inpt Care Lvl 2 Diagnoses Altered mental status R41.82 Altered mental status type: unspecified Seizure R56.9 (1) Altered mental status Altered mental status type: unspecified Qualified Code(s): R41.82 - Altered mental status, unspecified
[2020-06-03] MEDS: LACTATED RINGER'S 1,000 ML IV SCH (22:34)
[2020-06-03 23:05] LABS: Base Excess VBG -0.2 mEq/L; HCO3 VBG 27 mmol/L; Oxygen Saturation VBG < 60.0 %; PCO2 VBG 53 mmHg (38-50); PO2 VBG 28 mmHg; pH VBG 7.32 (7.36-7.41)
[2020-06-03 23:24] LABS: Thyroid Stimulating Hormone 3.49 uIu/ml (0.300-4.500)
[2020-06-04] MEDS: LACTATED RINGER'S 1,000 ML IV SCH ×2 (05:41→07:42)
[2020-06-04] MEDS ORDERED: levETIRAcetam 1,000 MG in 0.9 % SODIUM CHLORIDE 100 ML IV SCH (08:00)
--- NOTE | 2020-06-04 10:19 | Hospitalist Progress Note ---
Date of Service June 04, 2020 Assessment & Plan Admission and Anticipated Discharge Date Admission Date: June 03, 2020 Results & Data Results & [facility] ([facility] Vital Signs (Past 12 Hours) Vital Signs Temp Pulse Pulse Resp BP Pulse Ox 06/04/20 09:46 79 06/04/20 07:14 36.6 C 85 20 123/74 99 06/03/20 23:55 37.1 C 76 12 127/71 99 06/03/20 23:00 81
--- NOTE | 2020-06-04 13:06 | Neurology Consultation ---
Date of Consultation June 04, 2020 Assessment & Plan (1) Seizure: (2) Altered mental status: Seymour Bauer is a 24 yo man w/ PMH of anxiety, GERD, and marijuana abuse who p/t [facility] with AMS. # AMS: most concerning for benzo misuse with likely co-ingestion of opiates (vs other illicit substances), however, given c/f possible autoimmune encephalitis, MRI brain has been repeated without any signs of AE. He feels almost back to his baseline and was requesting if he could go home. - Discussed importance of not using Xanax again in the future as abrupt cessation can cause withdrawal seizure - Discussed the using medication such as buspirone would be more appropriate for long-term management of his anxiety - Counseled also on stopping marijuana obtain from the street and consider getting his medical marijuana card that he has already been looking into to make sure that his marijuana has not been cut with something else that could pose a potentially dangerous or deadly problem for him - Should follow up with PCP about ongoing anxiety and appropriate treatment including therapy. No need for neurology follow up at this time. Thank you for this interesting consult. He is stable for discharge home. Plan of care discussed with primary team. Please call or text with questions. History of Present Illness Attending Physician: Ramon Kate, DO History of Present Illness Seymour Bauer is a 24 yo man w/ PMH of anxiety, GERD, h/o cocaine abuse, ?serotonin syndrome and marijuana abuse who p/t [facility] with AMS. In the ED, he was brought in by his girlfriend due to altered mental status after they arrived back to [place] to start the semester. He was afebrile, BP 118/71, heart rate 89, respiratory rate 22, satting 98% on room air.Labs notable for WBC 7.83, hemoglobin 14.6, platelets 248, sodium 141, potassium 3.6, BUN 12, creatinine 0.99, glucose 78, no anion gap noted. Calcium/magnesium within normal, LFTs within normal, CK 45, troponin negative, CRP mildly elevated to 0.83, lipase within normal,ESR 4 (within normal),UA no infection, UDS positive for benzos and marijuana. Imaging independently reviewed. CT head shows Hemorrhage or hypodensity. He was admitted for possible benzo overdose after taking his girlfriend's Xanax. On examination, he reports that he feels a bit disoriented and confused but o therwise his normal self. Denies any headache, neck stiffness, fevers/chills, weakness, ataxia/gait issues or numbness/tingling. He notes that his current symptoms are quite different than those he experienced back in April 2020. He notes that at that time, he was taking xanax frequently at school but then stopped when he went home, which he thinks triggered a seizure. He did continue to smoke marijuana (1-3 joints daily) and is worried that there may have been something mixed into his marijuana since he adamantly denies taking any opiates. He does endorse taking xanax again but was unclear of when his last usage was. Discussed with him alternatives to xanax that he could use for anxiety and he was receptive to these options. MRI brain independently reviewed that was obtained right prior to examination and shows no acute/chronic infarcts, T2 hyperintensities, contrast enhancing lesions or signs of autoimmune encephalitis. On chart review, he had a seizure-like event on 04/11/2020 and was admitted to [facility]. At that time routine EEG was normal. MRI brain without contrast was unremarkable aside from cerebellar ectopia (2 to 3 mm). He was diagnosed with Marijuana withdrawal and discharged home. He was also admitted to [facility] from 04/17 to 04/19/2020 after family wanted to have a second opinion. LP showed 1 WBC, 50 RBCs, 72 glucose, 45 protein. He had a normal awake and drowsy routine EEG. He was hooked up to continuous EEG from 04/17 to 04/19/2020 which was notable only for mild generalized slowing with no epileptiform abnormalities noted. CT chest/abdomen/pelvis with contrast was unremarkable. UDS was positive for marijuana and opiates. He did note that he takes Xanax obtained from the street, marijuana and an unidentified capsule that he also bought off the street. He was treated with 3 days of 1 g IV Solu-Medrol for possible autoimmune encephalitis with plan to have repeat imaging and LP in 2 weeks if no improvement.Her she was then planning on doing Plex or IVIG. He was also started on Keppra 1 g twice daily for seizure prophylaxis. Allergies Allergy/AdvReac Type Severity Reaction Status Date / Time No Known Allergies Allergy Unverified 06/03/20 19:12 Home Medications Medication Instructions Recorded Confirmed Type levetiracetam [Keppra] 1,000 mg PO BID 06/03/20 06/03/20 History Patient History Medical History Seizure In setting of presumed serotonin syndrome Serotonin syndrome March 2020 - [place] [facility] [place] History of wisdom tooth extraction Family History Other Depression Social History Smoking Status: Never smoker Hx Alcohol Use: Yes Alcohol type: beer Hx Substance Use: Yes Prescribed Medications: Marijuana Substance Use Type Other:: Xanax until 2 months ago, cocaine until 6 months ago. Preferred Language: Chadian Communication Ability: Effective Turbogenerator Operator Required: No Beliefs That Will Affect Care: None Current Living Situation: Other Current Living Situation Comment: Living with a family of 4. Feels Safe at Home: Yes Assistive Devices: None Review of Systems Review of Systems: 14 point review of systems completed and negative except as in HPI. Exam (Neuro) Physical Exam: General Exam: GEN: NAD, sitting in chair. HEENT: No conjunctival injection, no rhinorrhea. CV: RRR, no peripheral edema PULM: Nonlabored respirations on room air. Neuro Exam: MS: Awake and Alert. Oriented to person, place, and date. Speech fluent and appropriate without dysarthria or paraphasic errors. Language intact including naming, comprehension, repetition. Cognition and memory grossly intact. Attention intact. No neglect. CN: Visual escalera full. No extinction to double simultaneous stimuli. No optic disc edema on fundoscopic exam. PERRLA OU. EOMI without nystagmus. Facial sensation intact to LT. Facial muscles full and symmetric. Hearing intact to conversation. Uvula midline with symmetric palatal elevation. Shoulder shrug normal. Tongue midline. A little slow to answer. MOTOR: Normal bulk and tone. No pronator drift. BUE strength 5/5 at deltoids, biceps, triceps, wrist flexors and extensors, and hand grasp bilaterally. BLE strength 5/5 at iliopsoas, hamstrings, quadriceps, tibialis anterior, and gastrocnemius bilaterally. REFLEXES: 2+ at biceps, triceps, brachioradialis, 2+ patella and Achilles bilaterally. Flexor plantar responses bilaterally. SENSORY: Intact to LT without extinction to double simultaneous stimuli. Vibration and pinprick intact throughout. COORDINATION: No dysmetria or ataxia on [id number] and [id number] bilaterally. Normal Jason bilaterally. GAIT: Normal gait and arm swing. Normal Romberg. Results & Data ([facility]) Vital Signs (Past 12 Hours) Vital Signs Temp Pulse Pulse Resp BP Pulse Ox 06/04/20 11:08 37.2 C 75 18 125/86 98 06/04/20 09:46 79 06/04/20 07:14 36.6 C 85 20 123/74 99 PG Care Time/CCT Total # of Minutes Spent Total Time Spent with Patient: Total time spent is greater than 50% in coordination of care (as documented) at patient's floor/unit and/or counseling patient: Coding Level of Care Code 51934 Inpt Consult Level 5 Diagnoses Seizure R56.9 Altered mental status R41.82 Altered mental status type: unspecified (1) Altered mental status Altered mental status type: unspecified Qualified Code(s): R41.82 - Altered mental status, unspecified
[2020-06-04] MEDS ORDERED: GADOBUTROL 65ML VIAL IV ONE (13:46)
--- NOTE | 2020-06-04 13:48 | Medical Student Progress Note ---
Date of Service June 04, 2020 Assessment & Plan Admission and Anticipated Discharge Date Admission Date: Seymour is a 24 y/o male with pmhx of serotonin syndrome and seizure-like activity on 04/06 and anxiety presenting with AMS in which he was somnolent and only arousable to noxious stimuli and is now alert and oriented X3 drowsy but conversational # Altered mental status, improving -Possible etiologies include intoxication with Xanax and Marijuana (which is not medically prescribed) and possibly other substances. Still must rule out encephalitis such as autoimmune or viral. Most likely not bacterial given normal white count and pt. afebrile. -Negative CT scan rules -Normal EKG and trops -Normal CBC without leukocytosis -Utox showed THC and benzos consistent with history that pt. gave. -EtOH negative -MRI wiith and without was negative -No infection in urine -Normal LFTS and renal function -No serum osmolar gap -He is still letargic but alert and oriented X3 -TSH 3.490 -Neuro q4 checks - Ordered LP to rule out an infectious etiology - #Seizure disorder -Levetiracetam 1000 mg IV Q12 hours -> Levetiracetam 1000 mg PO BID #Hypotension - BP dropped to 88/53 at 10 pm last night and has since increased 125/86. - Likely due to poor intake - Pt. was given NS and LR fluids IVF which was discontinued given new PO intake Supervising Attestation I personally examined the patient and verified all raymond points of history and exam, discussed case, and agree with decision making with Mitzi [facility]. feeling better - had nearly no recollection of last night's events. did note that he had a big fight with girlfriend earlier in the day, and shortly before he lost awareness he was noting tingling in fingers and some lightheadedness. someone inconsistent historian but on repeated lines of quesitoning denies any ingestion of any drugs or benzos for about the last 2-3 days prior to admission. later as he was going to leave [facility] revisited and he then admitted to taking bennie ax prior to admission which he previously denied, also seems that he probably hadn't taken xanax in a while (maybe a few months) prior to yesterday vitals noted nad heent nc at mmm breathing unlabored no accessory muscles good effort skin no rashes no pallor or icterus neuro no focal deficits. speech fluent. has insight into our concerns, has nearly no recollection for last night's events - can only loosely recall the ER visit ermias to trying to remember a dream AMS - initially concerning for some type of encephalitis/autoimmune/infectious process given his denial of substance use in the last few days - and in this respect wanted to observe him into tomorrow to ensure that he did not have waxing/waning symptoms. when he was wanting to leave AMA was then when he admitted to [facility] of taking xanax prior to presentation - whcih would explain much of his presentation fitting with a drug induced/toxic encephalopathy - espeically if mixed with other substances, and also especially if his tolerance had waned from a time of benzo abstinence. otherwise as above, >30 mins attending physician time Subjective No acute events overnight. According to nursing who spoke to his family, they said that he is not at has baseline and that he is usually very high functioning. Pt. does not remember much from yesterday. He remembers watching NFL last night but nothing else and didn't know why he was admitted. He reports that he takes Keppra for a seizure-like event on 03/2020. He says that he has panic attacks and was prescribed Xanax by a physician whose location he does not wish to disclose. He says that he had a panic attack yesterday and took Xanax but no more than what he usually takes. He does not see a psychologist or mental health counselor for his anxiety nor is he interested. Pt. denies fevers or chills. No chest pain or palpitations. No cough or SOB. No N/v. States that he hasn't had a BM but does not want anything for constipation. Has urinated. Review of Systems Review of Systems: All systems reviewed & are unremarkable except as noted in HPI & below Physical Exam Physical Exam: General: Well developed, well nourished, NAD, lying in hospital bed, lethargic, slurring his words Eyes: PERRL, no conjunctival injection, no pallor b/l Respiratory: Clear to auscultation b/l with no wheezes, rhonchi or rales, no labored breathing CV: RRR, no murmurs, gallops or rubs Abdomen: Soft, ton-tender, nondistended, hypoactive bowel sounds Neuro: Alert and oriented to person, time, and place Psych: Trouble recollecting past events though thought process linear Results & Data ([facility]) Vital Signs (Past 12 Hours) Vital Signs Temp Pulse Pulse Resp BP Pulse Ox 06/04/20 11:08 37.2 C 75 18 125/86 98 06/04/20 09:46 79 06/04/20 07:14 36.6 C 85 20 123/74 99
--- NOTE | 2020-06-04 14:03 | Magnetic Resonance Report ---
MRI OF THE BRAIN COMBO CLINICAL HISTORY: Change in mental status. COMPARISON STUDY: CT of the brain dated 06/03/2020. TECHNIQUE: MRI of the brain was performed utilizing various T1 and T2-weighted sequences in the axial , sagittal, and coronal planes. Contrast-enhanced sequences were acquired following the administratio n of 9.5 cc of Gadavist. FINDINGS: Brain parenchyma: The brain parenchyma is normal in appearance. There is no hemorrhage or mass effect . There is no restricted diffusion to suggest acute ischemia. No enhancing mass lesion is identified on the postcontrast images. Medina-white matter differentiation is preserved. No extra-axial fluid juli ection is seen. The cerebellar tonsils are normal in configuration. Ventricles, sulci, and cisterns: Normal in configuration. Pituitary and sella: Unremarkable. Intracranial vasculature: Normal flow voids are maintained at the skull base. Orbits: The bony orbits are grossly intact. Orbital contents are normal in appearance. Sinuses and mastoids: Clear. Calvarium: Unremarkable. Cervical cord: Partially visualized cervical spinal cord is normal in morphology and signal intensity . IMPRESSION: No acute intracranial abnormality. ACT 112: Negative or not required by law. Electronically signed by: Gunnar Gonzalez M.D. 06/04/2020 2:02 PM
--- NOTE | 2020-06-04 18:04 | Billing Data ---
Date of Service June 04, 2020 Coding Level of Care Code D/C Day Management >30 mins
--- NOTE | 2020-06-04 18:06 | Med Student Discharge Summary ---
Date of Service June 04, 2020 Admission HPI Per Admitting Provider Seymour Bauer is a 24 yo male presenting with altered mental status. Patient is unable to provide details of events prior to arrival. Patient's girlfriend was with him today and provides details and mother is at bedside. History collected from her as well as ER attending and chart review. Patient is from [place]. He was with his girlfriend today driving back to [place]. She picked him up around 13:00. She reports that around 17:00 he became lethargic and somnolent with labored breathing. 911 was called and patient was brought to the ER. Patient smoked some marijuana earlier today but denies additional substance use. He denies pain, VARGAS, fever, neck stiffness. No fall or head trauma. No additional complaints at this time. Upon arrival to the ER patient afebrile, HD stable, arousable to sternal rub, protecting airway ER Coruse: Keppra 50403 mg IV Admission Exam (Per Admitting) Constitutional General: patient somnolent, arousable to sternal rub, answers questions slowly with slurred speech, oriented x 3 Skin: warm, dry, intact, no rashes or lesions, no lacerations/bruising HEENT: NC/AT, facial bones stable, PERRL, anicteric sclera, conjunctiva without injection, external ear normal to inspection and nontender, right TM pearly, left ear with cerumen, nares patent, moist mucus membranes, dentition intact, no oropharyngeal lesions, neck supple, trachea midline, no LAD, no thyromegaly, no JVD Heart: +S1/S2, regular, no m/r/g Lungs: equal air entry bilaterally, no rales/rhonchi/wheezes Abd: +BS, soft, NT/ND, no masses/organomegaly/ascites Ext: warm, 2+ pulses in UE/LE bilaterally, no clubbing/cyanosis or edema Neuro: patient somnolent, arousable, answers questions slowly with slurred speech, oriented x 3, moving all extremities with equal strength 5/5 Discharge Data Consultations 06/03/20 20:21 ED Decision to Admit Stat 06/03/20 23:04 Consult Health Information Management Routine 06/04/20 08:06 Consult Neurology Routine Hospital Course (1) Seizure: Seymour is a 24 y/o male with a pmhx of suspected serotonin syndrome and seizure-like activity on 04/06 and anxiety who presented on 06/03/20 with AMS in which he was somnolent and only arousable to noxious stimuli most likely secondary to benzodiazepine use. AMS Review of records [place] [facility] [place] and [place] showed neurology notes dictating repeat MRI and LP if symptoms were to repeat/relapse. Given this, plan made to repeat MRI and LP. MRI returned negative, LP scheduled for following day. Urine tox was positive for benzos and marijuana. In the interim, nursing contacting rounding team that patient was getting dressed to leave AMA. Rounding team had extensive discussion with patient about concerns for waxing and waning mental status if encephalitis is involved and the need to watch till the following morning to ensure patient is safe going home. Patient appeared to appreciate concern and was on the same page regarding staying the next morning to ensure safety. Some time later, rounding team re- contacted about patient running down the romero to leave AMA. Patient was warned of risks of leaving AMA including return of symptoms, worsening confusion up to and including . He verbalized understanding and repeatedly said "i took too much of something i'm going home". His keppra was refilled and given to him so he would have it with him at home. Patient ultimately left against medical advice with understanding of the risks involved with doing so. (2) Altered mental status: (3) Benzodiazepine overdose: Discharge Plan Discharge Items Patient Disposition: Against Medical Advice Reason For Visit: AMS, SOMNOLENCE Condition on Discharge: Good Activity: Resume your previous activity Non-emergency contact: Primary Care Provider Follow-up/Referrals: Fito Pak MD [Primary Care Provider] - [facility] Therapy Director Provider Instructions: non emergency number [phone] Pending Studies at Discharge: No Stand-Alone Forms: My [employer], Smoking Cessation Medications and DC Order Prescriptions: Continued levetiracetam [Keppra] 1,000 mg Tablet 1,000 mg PO BID RF: 0 Discharge Orders: Discharge Order (Routine); Ordered 06/04/20 Ordered By: Wanda Melton Left Against Medical Advice (Routine); Ordered 06/04/20 Ordered By: Wanda Melton Admission Data Admit Date/Time: 06/03/20 21:08 Attending Provider: Ramon Kate Admit Provider: Edith Alegria Primary Care Provider: Fito Pak Other Providers: Edith Alegria ; Wanda Melton ; Aminata Nguyễn Other Interventions: Discharge Summary Assessment (RN) Last Done: 06/04/20 17:00 Resident Activity Tracking Resident Involvement: Resident Care Provided Care Provided: Adult Hospital Medicine
--- NOTE | 2020-06-04 18:16 | Electrocardiogram Report ---
Test Reason : Blood Pressure : / mmHG Vent. Rate : 105 BPM Atrial Rate : 105 BPM P-R Int : 160 ms QRS Dur : 084 ms QT Int : 326 ms P-R-T Axes : 065 075 055 degrees QTc Int : 430 ms Sinus tachycardia RSR' or QR pattern in V1 suggests right ventricular conduction delay No previous ECGs available Confirmed by Bishop Sahni ([id number]) on 06/04/2020 6:16:39 PM Referred By: REFERRED SELF Confirmed By:Bishop Sahni
[2020-06-06 15:37] LABS: 7-Aminoclonaz, Confirm NEGATIVE ng/mL (<25); Hydro-Alp Ur, GC/MS NEGATIVE ng/mL (<25); Hydroxyethylflurazepam, Conf NEGATIVE ng/mL (<50); Hydroxymidazolam Ur, GC/MS NEGATIVE ng/mL (<50); Hydroxytriazolam NEGATIVE ng/mL (<50); Lorazepam, Ur GC/MS NEGATIVE ng/mL (<50); Marijuana Quant, GCMS Urine 1930 ng/mL (<5); Nordiazepam, Confirm NEGATIVE ng/mL (<50); Oxazepam Ur, GC/MS NEGATIVE ng/mL (<50); Temazepam, Confirm NEGATIVE ng/mL (<50)
== END 2020-06-04 17:25 | disposition left against medical advice (07) | DRG 917 ==
LOC: ED 18:07 → 2S 21:08 → SUATTDRO 21:08 → 2S 22:01
DX: F41.9 Anxiety disorder, unspecified; I95.9 Hypotension, unspecified; K21.9 Gastro-esophageal reflux disease without esophagitis; F17.200 Nicotine dependence, unspecified, uncomplicated; G92 Toxic encephalopathy; G40.909 Epilepsy, unspecified, not intractable, without status epilepticus; Z79.899 Other long term (current) drug therapy; F12.10 Cannabis abuse, uncomplicated; T42.4X1A Poisoning by benzodiazepines, accidental (unintentional), initial encounter